=== PATIENT | female | born 1955 | race Caucasian/White ===

== ENCOUNTER → 2021-05-05 | Outpatient (CLI) | payer MEDICARE, OTHER ==
--- NOTE | 2021-05-08 07:33 | US ---
EXAMINATION TYPE: US duplex aorta DATE OF EXAM: 05/05/2021 COMPARISON: NONE CLINICAL HISTORY: 66-year-old female I71.4 AAA. Patient reports having a AAA. No family hx. TECHNIQUE: Multiple sonographic images of the abdominal aorta are obtained. FINDINGS: EXAM MEASUREMENTS: Abdominal Aorta: Proximal: 2.1 x 2.3 cm Mid: 1.8 x 1.9 cm Distal: 1.6 x 2.3 cm There is mild fusiform dilatation of the distal abdominal aorta for a span of 4.0 cm. However, there is no significant ectasia or aneurysm as the caliber is only 2.3 x 2.4 cm. Some crescentic atheroscle rotic plaque is present. Bifurcation: Right- 0.8 x 0.7 cm Left- 0.8 x 0.7 cm IMPRESSION: There is mild fusiform dilatation of the distal abdominal aorta up to 2.4 cm but without kait ectasi a or aneurysm. No AAA seen.
== END | disposition home or self-care (01) ==
LOC: RADUSWWP 15:33
PROVIDERS: ATTEND Family Medicine
DX: I77.811 Abdominal aortic ectasia (principal)
CPT/HCPCS: 93979

== ENCOUNTER → 2021-10-16 | Outpatient (CLI) | payer MEDICARE ==
--- NOTE | 2021-10-16 09:10 | US ---
EXAMINATION TYPE: US duplex aorta DATE OF EXAM: 10/16/2021 COMPARISON: US 04/2021 CLINICAL HISTORY: I74.1 Abdominal aortic. AAA EXAM MEASUREMENTS: Abdominal Aorta: Proximal: 2.6 x 2.5cm Mid: 1.8 x 1.9cm Distal: 1.8 x 2.3 cm Bifurcation: KELVIN 1.1 x 1.2cm HANDY 1.1 x 1.4cm Distal Aortic dilatation seen measuring 3.9 x 2.8 x 3.0cm IMPRESSION: Distal abdominal aortic aneurysm.
--- NOTE | 2021-10-24 07:46 | MM ---
Reason for Exam: Screening (asymptomatic). Last mammogram was performed 1 year(s) and 5 month(s) ago. Patient History: Menarche at age 11. First Full-Term at age 21. Postmenopausal. Risk Values: Esthela 5 year model risk: 1.6%. NCI Lifetime model risk: 5.9%. Prior Study Comparison: 06/07/2019 Bilateral MG screening mammo w CAD - 2, [facility]. 05/15/2020 Bilateral MG screening mammo w CAD - 2, [facility]. Tissue Density: The breast tissue is heterogeneously dense. This may lower the sensitivity of mammography. Findings: Analyzed By CAD. There is no suspicious group of microcalcifications or new suspicious mass in either breast. Overall Assessment: Benign, BI-RAD 2 Management: Screening Mammogram of both breasts in 1 year. A clinical breast exam by your physician is recommended on an annual basis and results should be correlated with mammographic findings. Electronically signed and approved by: Kush Hanson M.D. Radiologis
== END | disposition home or self-care (01) ==
LOC: RADUSWWP 06:49
PROVIDERS: ATTEND Family Medicine
DX: Z12.31 Encounter for screening mammogram for malignant neoplasm of breast (principal); I71.4 Abdominal aortic aneurysm, without rupture; Z78.0 Asymptomatic menopausal state
CPT/HCPCS: 77063; 77067; 93979

== ENCOUNTER → 2023-01-04 | Outpatient (CLI) | payer MEDICARE ==
--- NOTE | 2023-01-04 13:13 | BD ---
EXAMINATION TYPE: Axial Bone Density DATE OF EXAM: 01/04/2023 CLINICAL HISTORY: 67 years old Female. ICD-10 CODE: M85.89 DISORDER BONE Height: 62" Weight: 143.7lbs FRAX RISK QUESTIONS: Alcohol (3 or more units per day): No Family History (Parent hip fracture): No Glucocorticoids (More than 3mos): No (Ex: prednisone, prednisolone, methylprednisolone, dexamethasone, and hydrocortisone). History of Fracture in Adulthood: Yes, clavicle Secondary Osteoporosis: 1. Type 1 Diabetes: No 2. Hyperthyroidism: No 3. Menopause before 45: 45 4. Malnutrition: No 5. Chronic liver disease: No Rheumatoid Arthritis: No Current Tobacco Use: Yes RISK FACTORS HISTORY OF: Hip Fracture (Right/Left): No Spine Fracture: No History of Wrist Fracture: No Surgery to Spine/Hip(right/left)/Wrist (right/left): Lumbar spine surgery (x3) Family History of Osteoporosis: No Active: Not really Diet low in dairy products/other sources of calcium: No Postmenopausal woman: Yes Lost more than 2 inches in height since high school: No Frequent falls: No Poor Health: No Hyperparathyroidism: NO Adrenal Insufficiency: NO MEDICATIONS: Prednisone or other steroids: No Thyroid Medications: No Osteoporosis Medications: No Additional Medications: Blood pressure meds, cholesterol, multivitamin Additional History: None EXAM MEASUREMENTS: Bone mineral densitometry was performed using the [employer]. Bone mineral density about the R hip (g/cm2): 0.683 Bone mineral density about the L hip (g/cm2): 0.752 T Score values are as follows: -----R Neck: -2.0 -----L Neck: -2.3 -----R Total: -2.6 -----L Total: -2.0 Z Score values are as follows: -----R Neck: -0.4 -----L Neck: -0.7 -----R Total: -1.2 -----L Total: -0.7 Baseline Bone mineral density about the L Wrist (g/cm2): 0.439 T Score values are as follows: -----Dist. R+U: -4.6 -----Prox. R+U: -3.0 -----Radius total: -3.9 Z Score values are as follows: -----Dist. R+U: -3.0 -----Prox. R+U: -1.4 -----Radius total: -2.3 Baseline FRAX%s: The graph provided illustrates a 22.3% chance for a major osteoporotic fx and a 7.3% chance f or the hips probability for fx in 10 years time. IMPRESSION: Osteoporosis (T Score less than -2.5). There is increased fracture risk and therapy is usually indicated based on age. Re-Screen 1-2 years. NOTE: T-SCORE=SD OF THE YOUNG ADULT MEAN.
--- NOTE | 2023-01-05 20:51 | MM ---
Reason for Exam: Screening (asymptomatic). Last mammogram was performed 1 year(s) and 3 month(s) ago. Patient History: Menarche at age 11. First Full-Term at age 21. Postmenopausal. Risk Values: Esthela 5 year model risk: 1.7%. NCI Lifetime model risk: 5.7%. Prior Study Comparison: 06/07/2019 Bilateral MG screening mammo w CAD - 2, [facility]. 05/15/2020 Bilateral MG screening mammo w CAD - 2, [facility]. 10/16/2021 Bilateral MG 3D screening mammo w/cad, [facility]. Tissue Density: There are scattered fibroglandular densities. Findings: Analyzed By CAD. Small scattered benign oil cyst calcifications on both sides. There is no suspicious group of microcalcifications or new suspicious mass in either breast. Overall Assessment: Benign, BI-RAD 2 Management: Screening Mammogram of both breasts in 1 year. . Patient should continue monthly self-breast exams. A clinical breast exam by your physician is recommended on an annual basis. This exam should not preclude additional follow-up of suspicious palpable abnormalities. Note on Esthela scores and lifetime risk: 1. A Esthela score greater than 3% is considered moderate risk. If this is the case, consider specialist referral to assess eligibility for a risk reducing agent. 2. If overall lifetime risk for the development of breast cancer is 20% or higher, the patient may qualify for future screening with alternating mammogram and breast MRI. Electronically signed and approved by: Connor Asif M.D. Radiologist
== END | disposition home or self-care (01) ==
LOC: RADMAMWWP 11:56
PROVIDERS: ATTEND Family Medicine
DX: Z12.31 Encounter for screening mammogram for malignant neoplasm of breast (principal); M81.0 Age-related osteoporosis without current pathological fracture; M85.89 Other specified disorders of bone density and structure, multiple sites; Z78.0 Asymptomatic menopausal state
CPT/HCPCS: 77063; 77067; 77080

== ENCOUNTER → 2023-03-16 | Outpatient (CLI) | payer MEDICARE ==
--- NOTE | 2023-03-16 12:16 | US ---
EXAMINATION TYPE: US abdomen complete DATE OF EXAM: 03/16/2023 COMPARISON: NONE CLINICAL INDICATION: Female, 68 years old with history of I71.40 ABDOMINAL AORTIC ANEURYSM, WITHOUT R UPTURE,; AAA TECHNIQUE: Multiple sonographic images of the abdomen are obtained. FINDINGS: EXAM MEASUREMENTS: Liver Length: 12.6 cm Gallbladder Wall: 0.2 cm CBD: 0.7 cm Spleen: 9.1 cm Right Kidney: 10.7 x 4.0 x 4.4 cm Left Kidney: 10.4 x 4.6 x 4.4 cm Pancreas: Tail obscured by overlying bowel gas Liver: appears wnl Gallbladder: no evidence of stones Evidence for sonographic Lui's sign: no CBD: Upper normal limits for age. Spleen: wnl Right Kidney: anechoic lesion = 1.0cm upper pole Left Kidney: anechoic lesion upper pole = 2.3 x 2.8 x 2.1cm Upper IVC: wnl Abd Aorta: distal AAA measuring 3.2 x 3.5cm IMPRESSION: 1. Bilateral renal cysts. 2. Abdominal aortic fusiform prominence with an AP dimension of 3.2 cm.
== END | disposition home or self-care (01) ==
LOC: RADUSWWP 08:47
PROVIDERS: ATTEND Family Medicine
DX: I71.40 Abdominal aortic aneurysm, without rupture, unspecified (principal); N28.1 Cyst of kidney, acquired; E78.2 Mixed hyperlipidemia; Z83.79 Family history of other diseases of the digestive system
CPT/HCPCS: 76700

== ENCOUNTER → 2024-02-29 | Outpatient (CLI) | payer MEDICARE ==
--- NOTE | 2024-03-01 08:13 | MM ---
Reason for Exam: Screening (asymptomatic). Last mammogram was performed 1 year(s) and 1 month(s) ago. Patient History: Menarche at age 11. First Full-Term at age 21. Postmenopausal. Risk Values: Esthela 5 year model risk: 1.7%. NCI Lifetime model risk: 5.2%. Prior Study Comparison: 05/15/2020 Bilateral MG screening mammo w CAD - 2, [facility]. 10/16/2021 Bilateral MG 3D screening mammo w/cad, [facility]. 01/04/2023 Bilateral MG 3D screening mammo w/cad, [facility]. Tissue Density: The breasts are heterogeneously dense, which may obscure small masses. Findings: Analyzed By CAD. There is no suspicious group of microcalcifications or new suspicious mass in either breast. Benign-appearing calcifications. Overall Assessment: Benign, BI-RAD 2 Management: Screening Mammogram of both breasts in 1 year. . Patient should continue monthly self-breast exams. A clinical breast exam by your physician is recommended on an annual basis. This exam should not preclude additional follow-up of suspicious palpable abnormalities. Note on Esthela scores and lifetime risk: 1. A Esthela score greater than 3% is considered moderate risk. If this is the case, consider specialist referral to assess eligibility for a risk reducing agent. 2. If overall lifetime risk for the development of breast cancer is 20% or higher, the patient may qualify for future screening with alternating mammogram and breast MRI. [facility], , 03/01/2024 8:10 AM. Electronically signed and approved by: Jose Hurley M.D. Radiologis
== END | disposition home or self-care (01) ==
LOC: RADMAMWWP 14:20
PROVIDERS: ATTEND Family Medicine
DX: Z12.31 Encounter for screening mammogram for malignant neoplasm of breast (principal); Z78.0 Asymptomatic menopausal state; R92.333 Mammographic heterogeneous density, bilateral breasts
CPT/HCPCS: 77063; 77067

== ENCOUNTER → 2024-03-22 | Outpatient (CLI) | payer MEDICARE ==
--- NOTE | 2024-03-22 11:56 | US ---
EXAMINATION TYPE: US duplex aorta DATE OF EXAM: 03/22/2024 COMPARISON: NONE CLINICAL INDICATION: Female, 69 years old with history of I71.40 ABDOMINAL AORTIC ANEURYSM, WITHOUT R UPTURE,; AAA TECHNIQUE: Multiple sonographic images of the abdominal aorta are obtained with grayscale and color [employer] imaging. FINDINGS: EXAM MEASUREMENTS: Abdominal Aorta: Proximal: 2.1x2.2 Mid: 1.9x1.6 Distal: 3.1x.8 Bifurcation: Right Iliac: 1.0x1.0 Left Iliac: 1.0x1.0 COLLET MAKER NOTES: AAA at the distal aorta IMPRESSION: No evidence for aortic aneurysm. [facility], , 03/22/2024 11:53 AM
== END | disposition home or self-care (01) ==
LOC: RADUSWWP 09:10
PROVIDERS: ATTEND Family Medicine
DX: I71.40 Abdominal aortic aneurysm, without rupture, unspecified (principal)
CPT/HCPCS: 93979